=== PATIENT | male | born 1955 | race Caucasian/White ===

== ENCOUNTER → 2016-12-13 | Outpatient (CLI) | payer BC, MEDICARE ==
[2016-12-13 15:02] LABS: ABSOLUTE BASOPHILS # (AUTO) 0.1 10^3/uL (0.0-0.2); ABSOLUTE EOSINOPHILS # (AUTO) 0.4 10^3/uL (0.0-0.6); ABSOLUTE MONOCYTES (AUTO) 0.8 10^3/uL (0.1-1.4); ABSOLUTE NEUT (AUTO) 5.2 10^3/uL (1.7-8.2); EOSINOPHILS % (AUTO) 4.4 % (0-6); HEMATOCRIT 42.3 % (37.9-51.0); HEMOGLOBIN 13.4 g/dL (13.5-17.0); HGB HCT DIFFERENCE -2.1; LYMPHOCYTES % (AUTO) 23.2 % (13-45); MEAN CORPUSCULAR HEMOGLOBIN 30.5 pg (27.0-33.4); MEAN CORPUSCULAR HGB CONC 31.6 g/dL (32.0-36.0); MEAN CORPUSCULAR VOLUME 96 fl (80-97); MONOCYTES % (AUTO) 9.7 % (3-13); RED BLOOD COUNT 4.38 10^6/uL (4.35-5.55); RED CELL DISTRIBUTION WIDTH 12.7 % (11.5-14.0); SEGMENTED NEUTROPHILS % (AUTO) 61.7 % (42-78); WHITE BLOOD COUNT 8.4 10^3/uL (4.0-10.5)
[2016-12-13 15:24] LABS: ALANINE AMINOTRANSFERASE 43 U/L (21-72); ALKALINE PHOSPHATASE 72 U/L (38-126); ANION GAP 12 (5-19); ASPARTATE AMINO TRANSFERASE 25 U/L (17-59); BILIRUBIN,TOTAL 0.6 mg/dL (0.2-1.3); BLOOD UREA NITROGEN 11 mg/dL (7-20); CALCIUM 9.5 mg/dL (8.4-10.2); CARBON DIOXIDE 32 mmol/L (22-30); CHLORIDE 98 mmol/L (98-107); CHOLESTEROL 218.13 mg/dL (0-200); CREATININE RESULT 1.01 mg/dL (0.52-1.25); Direct HDL 48 mg/dL (>40); GLUCOSE 97 mg/dL (75-110); POTASSIUM 4.6 mmol/L (3.6-5.0); SODIUM 141.5 mmol/L (137-145); TOTAL PROTEIN 7.1 g/dL (6.3-8.2); TRIGLYCERIDES 188 mg/dL (<150)
[2016-12-13 15:35] LABS: DIRECT LDL 143 mg/dL (<100)
[2016-12-13 15:39] LABS: VLDL CHOLESTEROL 37.6 mg/dL (10-31)
[2016-12-13 16:08] LABS: THYROID STIMULATING HORMONE 2.43 uIU/mL (0.47-4.68)
== END ==
LOC: OD 13:47
PROVIDERS: ATTEND Internal Medicine
DX: I10 Essential (primary) hypertension (principal); E78.2 Mixed hyperlipidemia; E03.9 Hypothyroidism, unspecified; E29.1 Testicular hypofunction; D69.6 Thrombocytopenia, unspecified; E11.9 Type 2 diabetes mellitus without complications; E55.9 Vitamin D deficiency, unspecified
CPT/HCPCS: 36415; 80053; 80061; 82043; 82306; 83036; 84403; 84439; 84443; 85025

== ENCOUNTER 2017-02-11 05:15 | Inpatient (IN) | payer BC, MEDICARE ==
[2017-02-11] MEDS ORDERED: ASPIRIN 81 MG TABLET, CHEWABLE PO ONE (06:12)
[2017-02-11 06:35] LABS: ABSOLUTE BASOPHILS # (AUTO) 0.1 10^3/uL (0.0-0.2); ABSOLUTE EOSINOPHILS # (AUTO) 0.4 10^3/uL (0.0-0.6); ABSOLUTE LYMPHOCYTES (AUTO) 2.4 10^3/uL (0.5-4.7); ABSOLUTE NEUT (AUTO) 6.1 10^3/uL (1.7-8.2); BASOPHILS % (AUTO) 1.3 % (0-2); EOSINOPHILS % (AUTO) 4.1 % (0-6); HEMATOCRIT 40.6 % (37.9-51.0); HEMOGLOBIN 13.8 g/dL (13.5-17.0); HGB HCT DIFFERENCE 0.8; MEAN CORPUSCULAR HEMOGLOBIN 31.2 pg (27.0-33.4); MEAN CORPUSCULAR HGB CONC 33.9 g/dL (32.0-36.0); MEAN CORPUSCULAR VOLUME 92 fl (80-97); MONOCYTES % (AUTO) 9.9 % (3-13); RED BLOOD COUNT 4.41 10^6/uL (4.35-5.55); RED CELL DISTRIBUTION WIDTH 14.6 % (11.5-14.0); SEGMENTED NEUTROPHILS % (AUTO) 60.7 % (42-78); WHITE BLOOD COUNT 10.1 10^3/uL (4.0-10.5)
[2017-02-11 06:42] LABS: APPEARANCE,URINE CLEAR; BILIRUBIN,URINE NEGATIVE (NEGATIVE); GLUCOSE, URINE NEGATIVE (NEGATIVE); KETONES,URINE NEGATIVE (NEGATIVE); LEUKOCYTE ESTERASE,URINE NEGATIVE (NEGATIVE); NITRITE,URINE NEGATIVE (NEGATIVE); PROTEIN,URINE NEGATIVE (NEGATIVE); URINE SPECIFIC GRAVITY 1.017; UROBILINOGEN,URINE NEGATIVE mg/dL (<2.0)
[2017-02-11 06:50] LABS: ALANINE AMINOTRANSFERASE 32 U/L (21-72); ALBUMIN 4.4 g/dL (3.5-5.0); ALKALINE PHOSPHATASE 88 U/L (38-126); ANION GAP 13 (5-19); ASPARTATE AMINO TRANSFERASE 24 U/L (17-59); BILIRUBIN,TOTAL 1.3 mg/dL (0.2-1.3); BLOOD UREA NITROGEN 23 mg/dL (7-20); CALCIUM 9.4 mg/dL (8.4-10.2); CARBON DIOXIDE 30 mmol/L (22-30); CHLORIDE 97 mmol/L (98-107); CREATINE KINASE 28 U/L (55-170); CREATININE RESULT 1.01 mg/dL (0.52-1.25); GLUCOSE 143 mg/dL (75-110); LIPASE 788.8 U/L (23-300); POTASSIUM 3.7 mmol/L (3.6-5.0); SODIUM 139.9 mmol/L (137-145); TOTAL PROTEIN 7.7 g/dL (6.3-8.2)
[2017-02-11 07:02] LABS: CREATINE KINASE MB 0.47 ng/mL (<4.55); TROPONIN I < 0.012 ng/mL
[2017-02-11] MEDS ORDERED: MORPHINE SULFATE 10 MG/ML INJ IV ONE (07:48)
[2017-02-11] MEDS ORDERED: ONDANSETRON HCL INJ/PF 4 MG/2 ML SDV IV ONE (07:48)
[2017-02-11] MEDS ORDERED: NORMAL SALINE 1000 ML 1,000 ML IV PRN ×2 (07:49→10:37)
--- NOTE | 2017-02-11 08:09 | ER Document Report ---
ED GI/ - General Chief Complaint: Abdominal Pain Stated Complaint: ABDOMINAL PAIN Notes: Patient is a 61-year-old male who presents emergency Department complaining of abdominal pain for the past 2 going on 3 days. Patient states that this was gradual onset originally intermittent and mild but has progressed to being constant and more severe. Patient states that currently his pain is a 4 out of 5 in severity located in the epigastric area but radiates to the right upper quadrant and left upper quadrant and describes as a constant ache. He states that this pain gets worse postprandial. Denies any nausea, vomiting, diarrhea, constipation. Last bowel movement was about 2 days ago and was loose. Patient states that he is on chronic narcotics for chronic low back pain related to L1 L2 nerve impingement. He is on hydromorphone 12 mg extended release twice a day as well as 2 mg every 6 hours as needed. Past medical history significant for chronic back pain, diabetes, hypertension, GERD, coronary artery disease significant for an RI in 2005 requiring stent times one location unknown, hypothyroidism, history of alcohol abuse, h/o pancreatitis Past surgical history significant for coronary catheter in 2005, trach as a child, hernia, right knee arthroscopically, cholecystectomy Social history significant for former tobacco user, social alcohol user, admits to 5 drinks a week on average, denies any drug use Allergies to Levaquin-hives PCP: Sergey Miles TRAVEL OUTSIDE OF THE [place] IN LAST 30 DAYS: No - Related Data Allergies/Adverse Reactions: levofloxacin [From Levaquin] Allergy (Verified 02/11/17 05:16) Past Medical History - Social History Smoking Status: Never Smoker Chew tobacco use (# tins/day): No Frequency of alcohol use: Occasional Drug Abuse: None Family History: Reviewed & Not Pertinent Patient has suicidal ideation: No Patient has homicidal ideation: No - Past Medical History Cardiac Medical History: Reports: Hx Coronary Artery Disease - cardiac stent placement, Hx Heart Attack - 2004, Hx Hypertension Pulmonary Medical History: Reports: Hx Pneumonia - hx of sepsis, E-coli Denies: Hx Asthma, Hx Bronchitis, Hx COPD Neurological Medical History: Denies: Hx Cerebrovascular Accident, Hx Seizures Endocrine Medical History: Reports: Hx Diabetes Mellitus Type 2, Hx Hypothyroidism Renal/ Medical History: Denies: Hx Peritoneal Dialysis Malignancy Medical History: Reports Hx Leukemia - CLL GI Medical History: Reports: Hx Gastroesophageal Reflux Disease Musculoskeltal Medical History: Reports Hx Arthritis Past Surgical History: Reports: Hx Cardiac Catheterization - stent 2004, Hx Cholecystectomy - Immunizations Immunizations up to date: Yes Hx Diphtheria, Pertussis, Tetanus Vaccination: Yes Hx Pneumococcal Vaccination: 08/31/10 Review of Systems - Review of Systems Constitutional: No symptoms reported EENT: No symptoms reported Cardiovascular: No symptoms reported Respiratory: No symptoms reported Gastrointestinal: See HPI Genitourinary: No symptoms reported Male Genitourinary: No symptoms reported Musculoskeletal: No symptoms reported Skin: No symptoms reported Hematologic/Lymphatic: No symptoms reported Neurological/Psychological: No symptoms reported Physical Exam - Vital signs Vitals: Temp Pulse Resp BP Pulse Ox 98.5 F 68 16 167/95 H 100 02/11/17 05:20 02/11/17 05:20 02/11/17 05:20 02/11/17 05:20 02/11/17 05:20 - Notes Notes: PHYSICAL EXAM GENERAL: Alert, interacts well. HEAD: Normocephalic, atraumatic. EYES: Pupils equal, round, and reactive to light. Extraocular movements intact. ENT: Oral mucosa moist, tongue midline. NECK: Full range of motion. Supple. Trachea midline. LUNGS: Clear to auscultation bilaterally, no wheezes, rales, or rhonchi. No respiratory distress. HEART: Regular rate and rhythm. No murmurs, gallops, or rubs. ABDOMEN: Soft, mildly distended, dull to percussion, moderate tenderness over epigastrum. No guarding, rebound, or rigidity.. Bowel sounds present in all 4 quadrants. EXTREMITIES: Moves all 4 extremities spontaneously. No edema, radial and dorsalis pedis pulses 2/4 bilaterally. No cyanosis. NEUROLOGICAL: Alert and oriented x4. Normal speech. PSYCH: Normal affect, normal mood. SKIN: Warm, dry, normal turgor. No rashes or lesions noted. Course - Re-evaluation Re-evalutation: 02/11/17 08:17 Patient is a 61-year-old male is hemodynamically stable, no acute distress and afebrile. Initial lab work initiated by triage reveals a mildly elevated lipase of 788. I have consulted supervising physician Dr. Brendon Gomez who is recommended a CT of the abdomen and pelvis with IV contrast to evaluate the pancreas. Have initiated IV fluids and antiemetics at this time. 02/11/17 10:38 CT the abdomen and pelvis shows retroperitoneal inflammation at the head of the pancreas as well as duodenum and stomach. With these findings and elevated lipase and history of patient's alcohol abuse and discussed hospital admission with Dr. Marcin Valdez. He is agreeable for hospital admission. Discussed plan of patient who is agreeable. Per [facility] protocol and guidelines, this case was discussed with supervising physician Dr. Brendon Gomez prior to admission - Vital Signs Vital signs: Temp Pulse Resp BP Pulse Ox 98.1 F 68 17 153/95 H 99 02/11/17 08:00 02/11/17 05:20 02/11/17 09:01 02/11/17 08:00 02/11/17 09:01 - Laboratory Result Diagrams: 02/11/17 06:08 02/11/17 06:08 Laboratory results interpreted by me: 02/11/17 02/11/17 06:08 06:08 RDW 14.6 H Plt Count 102 L Chloride 97 L BUN 23 H Glucose 143 H Creatine Kinase 28 L Lipase 788.8 H - Diagnostic Test Radiology reviewed: Image reviewed, Reports reviewed - EKG Interpretation by Me EKG shows normal: Sinus rhythm Rate: Normal Rhythm: NSR Discharge - Discharge Clinical Impression: Pancreatitis Condition: Stable Disposition: ADMITTED INPATIENT Admitting Provider: Timothyist - José Miguel Unit Admitted: Medical Floor
[2017-02-11] MEDS ORDERED: HYDROMORPHONE HCL INJ/PF 2 MG/ML AMPULE IV ONE (10:38)
[2017-02-11] MEDS ORDERED: ACETAMINOPHEN 325 MG TABLET PO PRN (11:21)
[2017-02-11] MEDS ORDERED: ONDANSETRON 4 MG TAB.RAPDIS PO PRN (11:21)
[2017-02-11] MEDS ORDERED: MORPHINE SULFATE 10 MG/ML INJ IV PRN ×3 (11:26→17:37)
[2017-02-11] MEDS ORDERED: INSULIN LISPRO 100 UNIT/ML 3 ML VIAL SUBCUT PRN (12:04)
[2017-02-11] MEDS ORDERED: GLUCAGON,HUMAN RECOMB 1 MG INJ IM PRN (12:04)
[2017-02-11] MEDS ORDERED: DEXTROSE 40% GEL 15 GM TUBE PO PRN ×2 (12:04)
[2017-02-11] MEDS ORDERED: DEXTROSE 50%-WATER 25 GM/50 ML DISP.SYRIN IV PRN ×2 (12:04)
--- NOTE | 2017-02-11 12:17 | PDOC H&P ---
History of Present Illness Admission Date/PCP: 02/11/17 11:21 RASHAWN COELLO MD Patient complains of: Abdominal pain History of Present Illness: JESSICA DIAZ is a 61 year old male with a history of tonic lymphocytic leukemia who presents with a one-day history of abdominal pain. Patient reports his pain is epigastric area for the last day that radiates through occasionally to his back. It's made worse with eating. He reports that is 6 out of 10 currently. Patient has had some associated diarrhea. He denies any melena or bright blood per rectum. Patient is found to have inflammation around the pancreas as well as elevated lipase. The patient does occasionally have alcohol in the form of liquor 2 shots per day but none for the last several days. The patient was found to have cirrhosis on his CT scan although he has no history of cirrhosis. 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 The patient has a history of Foss's esophagitis and has been taking some nonsteroidals recently. He has had a cholecystectomy. Past Medical History Cardiac Medical History: Reports: Coronary Artery Disease - cardiac stent placement, Myocardial Infarction - 2004, Hypertension Pulmonary Medical History: Reports: Pneumonia - hx of sepsis, E-coli Denies: Asthma, Bronchitis, Chronic Obstructive Pulmonary Disease (COPD) EENT Medical History: Reports: None Neurological Medical History: Denies: Seizures Endocrine Medical History: Reports: Diabetes Mellitus Type 2, Hypothyroidism Renal/ Medical History: Reports: None Malignancy Medical History: Reports: Leukemia - CLL GI Medical History: Reports: Gastroesophageal Reflux Disease, Other - Foss's esophagitis Musculoskeltal Medical History: Reports: Arthritis Skin Medical History: Reports: None Psychiatric Medical History: Reports: None Traumatic Medical History: Reports: None Hematology: Denies: Anemia Infectious Medical History: Reports: None Past Surgical History Past Surgical History: Reports: Cardiac Catheterization - stent 2004, Cholecystectomy Social History Information Source: Patient Lives with: Spouse/Significant other Smoking Status: Never Smoker Frequency of Alcohol Use: Rare Hx Recreational Drug Use: No Drugs: None Hx Prescription Drug Abuse: No - Advance Directive Resuscitation Status: Full Code Surrogate healthcare decision maker:: Family History Family History: Father at age 65 with lymphoma. Mother is 90 alive and is healthy Parental Family History Reviewed: Yes Children Family History Reviewed: No Sibling(s) Family History Reviewed.: No Medication/Allergy Home Medications: Aspirin [Ecotrin 81 mg EC Tablet] 81 mg PO DAILY 01/04/12 Pregabalin [Lyrica 100 mg Capsule] 150 mg PO BID 01/04/12 Alprazolam [Xanax 0.5 mg Tablet] 0.5 mg PO QID 02/04/14 Esomeprazole Magnesium [Nexium] 40 mg PO BID 04/26/14 Metformin HCl [Glucophage 500 mg Tablet] 500 mg PO BIDACBS 12/26/14 Cetirizine HCl [Zyrtec 10 mg Tablet] 1 tab PO DAILY 04/07/16 Hydromorphone HCl 2 mg PO BIDP PRN 04/08/16 Hydromorphone HCl [Hydromorphone ER] 24 mg PO DAILY 04/08/16 Fluticasone Propionate 2 spray NASL DAILY 04/10/16 Ondansetron HCl 1 tab PO Q8 PRN 04/10/16 Atenolol [Tenormin 50 mg Tablet] 50 mg PO DAILY tablet 04/12/16 Ertapenem Sodium [Invanz Inj 1 gm Vial] 1 gm IV DAILY #8 vial 04/12/16 Lisinopril [Prinivil 10 mg Tablet] 10 mg PO DAILY #30 tablet 04/12/16 Metoclopramide HCl [Reglan 10 mg Tablet] 5 mg PO ACHS #120 tablet 04/12/16 Ranitidine HCl [Zantac] 150 mg PO QHS #30 tablet 04/12/16 Dilaudid 12mg Extended Release 2 tab PO QAM #6 11/16/16 Hydromorphone HCl [Dilaudid 2 mg Tablet] 2 mg PO Q6 PRN #12 tablet 11/16/16 Allergies/Adverse Reactions: levofloxacin [From Levaquin] Allergy (Verified 02/11/17 05:16) Review of Systems Constitutional: ABSENT: chills, fever(s), headache(s), weight gain, weight loss Eyes: ABSENT: visual disturbances Ears: ABSENT: hearing changes Cardiovascular: ABSENT: chest pain, dyspnea on exertion, edema, orthropnea, palpitations Respiratory: ABSENT: cough, hemoptysis Gastrointestinal: PRESENT: as per HPI, abdominal pain, diarrhea, nausea. ABSENT : bloating, coffee ground emesis, constipation, heartburn, hematemesis, hematochezia, melena, vomiting Genitourinary: ABSENT: dysuria, hematuria Musculoskeletal: PRESENT: back pain Integumentary: ABSENT: rash, wounds Neurological: ABSENT: abnormal gait, abnormal speech, confusion, dizziness, focal weakness, syncope Psychiatric: ABSENT: anxiety, depression Endocrine: ABSENT: cold intolerance, heat intolerance, polydipsia, polyuria Hematologic/Lymphatic: ABSENT: easy bleeding, easy bruising Physical Exam Vital Signs: Temp Pulse Resp BP Pulse Ox 98.1 F 68 17 153/95 H 99 02/11/17 08:00 02/11/17 05:20 02/11/17 09:01 02/11/17 08:00 02/11/17 09:01 General appearance: PRESENT: no acute distress, well-developed, well-nourished Head exam: PRESENT: atraumatic, normocephalic Eye exam: PRESENT: conjunctiva pink, EOMI, PERRLA. ABSENT: scleral icterus Ear exam: PRESENT: normal external ear exam Mouth exam: PRESENT: moist, tongue midline Neck exam: ABSENT: carotid bruit, JVD, lymphadenopathy, thyromegaly Respiratory exam: PRESENT: clear to auscultation arabella. ABSENT: rales, rhonchi, wheezes Cardiovascular exam: PRESENT: RRR. ABSENT: diastolic murmur, rubs, systolic murmur GI/Abdominal exam: PRESENT: normal bowel sounds, soft, tenderness - Moderate epigastric tenderness but no guarding or rebound. ABSENT: distended, guarding, mass, organolmegaly, rebound Rectal exam: PRESENT: deferred Extremities exam: ABSENT: calf tenderness, clubbing, pedal edema Neurological exam: PRESENT: alert, awake, oriented to person, oriented to place , oriented to time, oriented to situation, CN II-XII grossly intact. ABSENT: motor sensory deficit Psychiatric exam: PRESENT: appropriate affect Skin exam: PRESENT: dry, intact, warm. ABSENT: cyanosis, rash Results Impressions: Chest X-Ray 02/11/17 06:12 IMPRESSION: NO ACUTE RADIOGRAPHIC FINDING IN THE CHEST. Abdomen/Pelvis CT 02/11/17 07:48 IMPRESSION: Retroperitoneal inflammation surrounding the gastric outlet, proximal duodenum and pancreatic head. Findings are most likely related the pancreatitis. Inflammation related to duodenum ulcer could not be excluded. Cirrhosis with portal hypertension and varices. No ascites. Assessment & Plan - Diagnosis (1) Pancreatitis Is this a current diagnosis for this admission?: YesPlan: The patient has inflammation around the pancreas as well as elevated lipase. He has had a cholecystectomy in the past. We will check an MRCP to rule out any type of mass. Patient does drink alcohol occasionally but it's not clear if that is the cause for his pancreatitis as well as his cirrhosis. We'll keep him nothing by mouth and give IV fluids. We'll consult Dr. Shields his intermediate frame tender. We will give morphine as needed. The possibility of this being related some his chemotherapeutic agents is considered but is not had his chemotherapy and over a year. He does have cirrhosis also. (2) Diabetes mellitus Is this a current diagnosis for this admission?: YesPlan: We'll hold his metformin and cover with sliding scale insulin. (3) Hypothyroidism Is this a current diagnosis for this admission?: YesPlan: Continue Synthroid. (4) Coronary artery disease Is this a current diagnosis for this admission?: YesPlan: Patient denies any chest pain. (5) Hyperlipidemia Is this a current diagnosis for this admission?: Yes (6) Hypertension Is this a current diagnosis for this admission?: YesPlan: The blood pressures elevated however he is in some pain and we will give morphine. (7) Gastroesophageal reflux disease Is this a current diagnosis for this admission?: YesPlan: He has a history of Foss's esophagitis and has been taking some nonsteroidals. We'll give Pepcid (8) Chronic lymphocytic leukemia Is this a current diagnosis for this admission?: YesPlan: Patient has a normal white blood cell count. He has seen Dr. Levine in the past. - Time Time Spent: 50 to 70 Minutes - Inpatient Certification Medical Necessity: Need For IV Fluids, Need for Pain Control - Plan Summary Plan Summary: We'll make him a regular inpatient admission as I anticipate his require greater than 2 midnight hospital stay because of his need for IV fluids and IV narcotics.
--- NOTE | 2017-02-11 14:14 | ER Document Report ---
Doctor's Note Notes: 02/11/17 14:13 Patient independently seen and examined by myself. Reports epigastric pain and nausea similar to what is had a past with pancreatitis. On exam skin is warm and dry abdomen soft mild epigastric tenderness nondistended no guarding rebound rigidity no masses CT scan and laboratory workup both consistent with pancreatitis and patient will require admission
--- NOTE | 2017-02-11 17:29 | EKG REPORT ---
SEVERITY:- BORDERLINE ECG - SINUS RHYTHM BORDERLINE R WAVE PROGRESSION, ANTERIOR LEADS BORDERLINE T ABNORMALITIES, ANTERIOR LEADS : Confirmed by: Snow Singletary MD 11-Feb-2017 17:28:18
[2017-02-11] MEDS ORDERED: HYDRALAZINE HCL INJ/PF 20 MG/1 ML SDV IV PRN (17:37)
[2017-02-11] MEDS: ONDANSETRON HCL INJ/PF 4 MG/2 ML SDV IV PRN (17:44)
[2017-02-11] MEDS: NORMAL SALINE 1000 ML 1,000 ML IV PRN (18:37)
[2017-02-11] MEDS: MORPHINE SULFATE 10 MG/ML INJ IV PRN ×3 (19:38→23:33)
[2017-02-11] MEDS: FAMOTIDINE 20 MG TABLET PO SCH (21:38)
[2017-02-12] MEDS: MORPHINE SULFATE 10 MG/ML INJ IV PRN ×10 (01:37→23:39)
[2017-02-12] MEDS: ONDANSETRON HCL INJ/PF 4 MG/2 ML SDV IV PRN (01:43)
[2017-02-12 05:02] LABS: ABSOLUTE BASOPHILS # (AUTO) 0.1 10^3/uL (0.0-0.2); ABSOLUTE EOSINOPHILS # (AUTO) 0.2 10^3/uL (0.0-0.6); ABSOLUTE LYMPHOCYTES (AUTO) 1.1 10^3/uL (0.5-4.7); ABSOLUTE MONOCYTES (AUTO) 0.7 10^3/uL (0.1-1.4); ABSOLUTE NEUT (AUTO) 2.9 10^3/uL (1.7-8.2); BASOPHILS % (AUTO) 1.8 % (0-2); EOSINOPHILS % (AUTO) 4.7 % (0-6); HEMATOCRIT 34.6 % (37.9-51.0); HEMOGLOBIN 11.9 g/dL (13.5-17.0); HGB HCT DIFFERENCE 1.1; LYMPHOCYTES % (AUTO) 22.8 % (13-45); MEAN CORPUSCULAR HEMOGLOBIN 31.5 pg (27.0-33.4); MEAN CORPUSCULAR HGB CONC 34.3 g/dL (32.0-36.0); MEAN CORPUSCULAR VOLUME 92 fl (80-97); MONOCYTES % (AUTO) 13.1 % (3-13); RED BLOOD COUNT 3.77 10^6/uL (4.35-5.55); RED CELL DISTRIBUTION WIDTH 14.5 % (11.5-14.0); SEGMENTED NEUTROPHILS % (AUTO) 57.6 % (42-78)
[2017-02-12 05:24] LABS: ANION GAP 6 (5-19); BLOOD UREA NITROGEN 14 mg/dL (7-20); CALCIUM 8.5 mg/dL (8.4-10.2); CARBON DIOXIDE 30 mmol/L (22-30); CHLORIDE 107 mmol/L (98-107); CREATININE RESULT 0.84 mg/dL (0.52-1.25); GLUCOSE 109 mg/dL (75-110); LIPASE 626.7 U/L (23-300); MAGNESIUM 1.5 mg/dL (1.6-2.3); POTASSIUM 4.4 mmol/L (3.6-5.0)
[2017-02-12] MEDS: MAGNESIUM SULFATE/D5W 100 ML IV SCH ×2 (08:08→11:58)
[2017-02-12] MEDS ORDERED: MIDAZOLAM 2 MG/2 ML INJ ONE (08:59)
[2017-02-12] MEDS ORDERED: NALOXONE HCL INJ/PF 0.4 MG/1 ML SDV ONE (08:59)
[2017-02-12] MEDS ORDERED: PROMETHAZINE HCL INJ 25 MG/1 ML VIAL ONE (08:59)
[2017-02-12] MEDS ORDERED: DIPHENHYDRAMINE HCL 50 MG/ML VIAL ONE (08:59)
[2017-02-12] MEDS ORDERED: ONDANSETRON HCL INJ/PF 4 MG/2 ML SDV ONE (08:59)
[2017-02-12] MEDS ORDERED: GLUCAGON,HUMAN RECOMB 1 MG INJ ONE (09:00)
[2017-02-12] MEDS ORDERED: EPINEPHRINE INJ 1 MG/10 ML DISP.SYRIN ONE (09:00)
[2017-02-12] MEDS ORDERED: FLUMAZENIL INJ 0.5 MG/5 ML VIAL IV ONE (09:00)
[2017-02-12] MEDS ORDERED: FENTANYL CITRATE INJ/PF 100 MCG/2 ML AMPUL ONE (09:00)
--- NOTE | 2017-02-12 09:21 | PDOC CONSULTATION ---
Consultation Consult Date: 02/12/17 Attending physician:: KATHIA CASTILLO Consult reason:: pancreatitis. abnormal CT scan, radiologist concerned for possible duodenal bulb inflammation. known history of Foss's. ? possible varices, ? cirrhosis History of Present Illness Admission Date/PCP: 02/11/17 11:21 RASHAWN COELLO MD History of Present Illness: Patient admitted by the Hospitalist service patient has a history of Foss's esophagus and has had ablation done in the past has not been seen for a while patient presented with pancreatitis patient had CT scan done, apparently may have abnormal finding as suggested by radiologist will need EGD for further clarification patient does have thrombocytopenia and may have varices as well suggestive of possible varices could have cirrhosis denies any jaundice patient is largely epigastric in nature denies any melena there is no nausea or vomiting patient denies any dysphagia or odynophagia Past Medical History Cardiac Medical History: Reports: Coronary Artery Disease - cardiac stent placement, Myocardial Infarction - 2004, Hypertension Pulmonary Medical History: Reports: Pneumonia - hx of sepsis, E-coli Denies: Asthma, Bronchitis, Chronic Obstructive Pulmonary Disease (COPD) EENT Medical History: Reports: None Neurological Medical History: Denies: Seizures Endocrine Medical History: Reports: Diabetes Mellitus Type 2, Hypothyroidism Renal/ Medical History: Reports: None Malignancy Medical History: Reports: Leukemia - CLL GI Medical History: Reports: Gastroesophageal Reflux Disease, Other - Foss's esophagitis Musculoskeltal Medical History: Reports: Arthritis Skin Medical History: Reports: None Psychiatric Medical History: Reports: None Denies: Depression Traumatic Medical History: Reports: None Hematology: Denies: Anemia Infectious Medical History: Reports: None Past Surgical History Past Surgical History: Reports: Cardiac Catheterization - stent 2004, Cholecystectomy Social History Lives with: Spouse/Significant other Smoking Status: Former Smoker Last Time Smoked: 2004 Frequency of Alcohol Use: Occasional Hx Recreational Drug Use: No Drugs: None Hx Prescription Drug Abuse: No - Advance Directive Resuscitation Status: Full Code Family History Family History: Reviewed & Not Pertinent Parental Family History Reviewed: Yes Children Family History Reviewed: Unknown Sibling(s) Family History Reviewed.: Unknown Medication/Allergy Home Medications: Aspirin [Aspirin 81 mg Chewable Tablet] 81 mg PO DAILY 02/11/17 Atenolol [Tenormin 50 mg Tablet] 50 mg PO DAILY 02/11/17 Cetirizine HCl [Zyrtec 10 mg Tablet] 1 tab PO DAILYP PRN 02/11/17 Esomeprazole Magnesium [Nexium] 40 mg PO BID 02/11/17 Fluticasone Propionate [Flonase Nasal [place] 50 Mcg/[place] 16 gm] 2 sprays NASL DAILYP PRN 02/11/17 Hydromorphone HCl [Dilaudid 2 mg Tablet] 2 mg PO QIDP PRN 02/11/17 Hydromorphone HCl [Exalgo] 12 mg PO BID 02/11/17 Lisinopril [Prinivil 10 mg Tablet] 10 mg PO DAILY 02/11/17 Metformin HCl [Glucophage] 500 mg PO BIDBS 02/11/17 Metoclopramide HCl [Reglan 10 mg Tablet] 5 mg PO QIDP PRN 02/11/17 Pregabalin [Lyrica 75 mg Capsule] 150 mg PO BID 02/11/17 Ranitidine HCl [Zantac] 150 mg PO QHS 02/11/17 Allergies/Adverse Reactions: levofloxacin [From Levaquin] Allergy (Verified 02/11/17 05:16) Review of Systems Constitutional: ABSENT: fever(s), headache(s), night sweats, weakness Eyes: ABSENT: visual disturbances Ears: ABSENT: hearing changes Nose, Mouth, and Throat: ABSENT: sore throat Cardiovascular: ABSENT: chest pain, edema, palpitations Respiratory: ABSENT: dyspnea, hemoptysis Gastrointestinal: ABSENT: diarrhea, dysphagia, hematemesis, hematochezia, nausea , vomiting Genitourinary: ABSENT: dysuria, hematuria Musculoskeletal: ABSENT: deformity Integumentary: ABSENT: lesions, pruritus Neurological: ABSENT: focal weakness, numbness, syncope, vertigo Endocrine: ABSENT: polydipsia, polyphagia, polyuria Physical Exam Vital Signs: Temp Pulse Resp BP Pulse Ox 98.4 F 63 16 149/81 H 100 02/12/17 08:58 02/12/17 08:58 02/12/17 08:58 02/12/17 08:58 02/12/17 08:58 Intake & Output 02/11/17 02/12/17 02/13/17 06:59 06:59 06:59 Intake Total 2475 Output Total 500 Balance 1975 Weight 84.4 kg General appearance: PRESENT: no acute distress, cooperative Head exam: PRESENT: atraumatic, normocephalic Eye exam: PRESENT: EOMI, PERRLA. ABSENT: nystagmus, periorbital swelling, scleral icterus Mouth exam: PRESENT: moist Throat exam: ABSENT: tonsillar exudate Neck exam: ABSENT: meningismus, tenderness, thyromegaly Respiratory exam: PRESENT: symmetrical, unlabored. ABSENT: chest wall tenderness, tachypnea Cardiovascular exam: PRESENT: RRR, rubs, +S2 Pulses: PRESENT: normal carotid pulses Extremities exam: ABSENT: joint swelling Musculoskeletal exam: PRESENT: full ROM Neurological exam: PRESENT: oriented to time, oriented to situation, reflexes normal Psychiatric exam: PRESENT: appropriate affect Skin exam: PRESENT: normal color. ABSENT: mottled, pallor, petechiae, urticaria , vesicles Results Laboratory Results: 02/12/17 04:28 02/12/17 04:28 02/12/17 02/12/17 04:28 04:28 WBC 5.0 RBC 3.77 L Hgb 11.9 L Hct 34.6 L MCV 92 MCH 31.5 MCHC 34.3 RDW 14.5 H Plt Count 60 L Seg Neutrophils % 57.6 Lymphocytes % 22.8 Monocytes % 13.1 H Eosinophils % 4.7 Basophils % 1.8 Absolute Neutrophils 2.9 Absolute Lymphocytes 1.1 Absolute Monocytes 0.7 Absolute Eosinophils 0.2 Absolute Basophils 0.1 Sodium 143.0 Potassium 4.4 Chloride 107 Carbon Dioxide 30 Anion Gap 6 BUN 14 Creatinine 0.84 Est GFR ( Amer) > 60 Est GFR (Non-Af Amer) > 60 Glucose 109 Calcium 8.5 Magnesium 1.5 L Lipase 626.7 H Impressions: Abdomen MRI 02/11/17 00:00 IMPRESSION: 1. INFLAMMATORY CHANGES WITH EDEMA INVOLVING THE PANCREATIC HEAD CONSISTENT WITH PANCREATITIS. 2. UNREMARKABLE MRCP. NO BILIARY DILATION OR FILLING DEFECTS. Chest X-Ray 02/11/17 06:12 IMPRESSION: NO ACUTE RADIOGRAPHIC FINDING IN THE CHEST. Abdomen/Pelvis CT 02/11/17 07:48 IMPRESSION: Retroperitoneal inflammation surrounding the gastric outlet, proximal duodenum and pancreatic head. Findings are most likely related the pancreatitis. Inflammation related to duodenum ulcer could not be excluded. Cirrhosis with portal hypertension and varices. No ascites. Assessment & Plan - Diagnosis (1) Abnormal abdominal CT scan Plan: ? possible duodenal inflammation as suggested by the radiologist will need EGD for further evaluation Risks, benefits and alternatives are explained to the patient in detail further recommendations to follow (2) Gastroesophageal reflux disease Is this a current diagnosis for this admission?: YesPlan: known history of Foss's previously ablation denies any current symptoms while on medication (3) Pancreatitis Is this a current diagnosis for this admission?: YesPlan: ? etiology has some thrombocytopenia and possible varices suggestive of portal hypertension and possible cirrhosis ? possible ETOH LFT's are normal, has had cholecystectomy doubt retained stone ? due to medication will follow
--- NOTE | 2017-02-12 09:37 | Operative Report ---
Operative Report DATE OF SURGERY: 02/12/17 Operative Report: The risks benefits and alternatives of the procedure explained to the patient in detail and informed consent is obtained that GIF Olympus video scope was inserted into the patient's mouth and hypopharynx the esophagus is identified intubated and insufflated the scope was then advanced through the esophagus stomach and duodenum retroflexion maneuver is done the esophagus stomach and first and second portions of the duodenum examined PREOPERATIVE DIAGNOSIS: Known history of Foss's. Evaluate for esophageal varices. Abnormal CT scan POSTOPERATIVE DIAGNOSIS: Normal duodenum. Mild gastritis. Foss's has resolved. Prominent esophageal veins OPERATION: EGD with biopsy SURGEON: KATHIA CASTILLO ANESTHESIA: Moderate Sedation - 2 mg of Versed, 25 mg of Benadryl. Conscious sedation monitoring time 15 minutes TISSUE REMOVED OR ALTERED: Shallow mucosal gastric biopsy obtained, rule out Helicobacter pylori COMPLICATIONS: None. ESTIMATED BLOOD LOSS: none. INTRAOPERATIVE FINDINGS: As noted above. PROCEDURE: Patient tolerated the procedure well. No immediate postprocedure complications are noted. Patient is discharged in good condition. Patient sent back to his room Resume diet advance as tolerated Resume previous activity level Follow-up on biopsy Follow-up as outpatient
--- NOTE | 2017-02-12 10:53 | PDOC PROGRESS REPORT ---
Subjective Progress Note for:: 02/12/17 Subjective:: Reports his abdominal pain has improved. Physical Exam Vital Signs: Temp Pulse Resp BP Pulse Ox 98.4 F 74 17 128/70 H 98 02/12/17 08:58 02/12/17 10:00 02/12/17 10:00 02/12/17 10:00 02/12/17 10:00 Intake & Output 02/11/17 02/12/17 02/13/17 06:59 06:59 06:59 Intake Total 2475 300 Output Total 500 Balance 1975 300 Weight 84.4 kg General appearance: PRESENT: no acute distress Eye exam: PRESENT: conjunctiva pink. ABSENT: scleral icterus Ear exam: PRESENT: normal external ear exam Mouth exam: PRESENT: moist, tongue midline Neck exam: ABSENT: JVD Respiratory exam: PRESENT: clear to auscultation arabella. ABSENT: rales, rhonchi, wheezes Cardiovascular exam: PRESENT: RRR. ABSENT: diastolic murmur, rubs, systolic murmur GI/Abdominal exam: PRESENT: normal bowel sounds, soft, tenderness - Mild left upper quadrant tenderness but no guarding or rebound.. ABSENT: distended, guarding, mass, organolmegaly, rebound Extremities exam: ABSENT: calf tenderness, clubbing, pedal edema Neurological exam: PRESENT: alert, awake, oriented to person, oriented to place , oriented to time, oriented to situation, CN II-XII grossly intact. ABSENT: motor sensory deficit Psychiatric exam: PRESENT: appropriate affect Skin exam: PRESENT: dry, intact, warm. ABSENT: cyanosis, rash Results Laboratory Results: 02/12/17 04:28 02/12/17 04:28 02/12/17 02/12/17 04:28 04:28 WBC 5.0 RBC 3.77 L Hgb 11.9 L Hct 34.6 L MCV 92 MCH 31.5 MCHC 34.3 RDW 14.5 H Plt Count 60 L Seg Neutrophils % 57.6 Lymphocytes % 22.8 Monocytes % 13.1 H Eosinophils % 4.7 Basophils % 1.8 Absolute Neutrophils 2.9 Absolute Lymphocytes 1.1 Absolute Monocytes 0.7 Absolute Eosinophils 0.2 Absolute Basophils 0.1 Sodium 143.0 Potassium 4.4 Chloride 107 Carbon Dioxide 30 Anion Gap 6 BUN 14 Creatinine 0.84 Est GFR ( Amer) > 60 Est GFR (Non-Af Amer) > 60 Glucose 109 Calcium 8.5 Magnesium 1.5 L Lipase 626.7 H Impressions: Abdomen MRI 02/11/17 00:00 IMPRESSION: 1. INFLAMMATORY CHANGES WITH EDEMA INVOLVING THE PANCREATIC HEAD CONSISTENT WITH PANCREATITIS. 2. UNREMARKABLE MRCP. NO BILIARY DILATION OR FILLING DEFECTS. Chest X-Ray 02/11/17 06:12 IMPRESSION: NO ACUTE RADIOGRAPHIC FINDING IN THE CHEST. Abdomen/Pelvis CT 02/11/17 07:48 IMPRESSION: Retroperitoneal inflammation surrounding the gastric outlet, proximal duodenum and pancreatic head. Findings are most likely related the pancreatitis. Inflammation related to duodenum ulcer could not be excluded. Cirrhosis with portal hypertension and varices. No ascites. Assessment & Plan - Diagnosis (1) Pancreatitis Is this a current diagnosis for this admission?: YesPlan: The patient has inflammation around the pancreas as well as elevated lipase. He has had a cholecystectomy in the past. MRCP was done and shows no obvious mass. Patient does drink alcohol occasionally but it's not clear if that is the cause for his pancreatitis as well as his cirrhosis. We'll keep him nothing by mouth and give IV fluids. Dr Shields of gastroenterology has already evaluated the patient today with EGD. We will give morphine as needed. He does have cirrhosis also. (2) Diabetes mellitus Is this a current diagnosis for this admission?: YesPlan: We'll hold his metformin and cover with sliding scale insulin. (3) Hypothyroidism Is this a current diagnosis for this admission?: YesPlan: Continue Synthroid. (4) Coronary artery disease Is this a current diagnosis for this admission?: YesPlan: Patient denies any chest pain. (5) Hyperlipidemia Is this a current diagnosis for this admission?: Yes (6) Hypertension Is this a current diagnosis for this admission?: YesPlan: The blood pressures elevated however he is in some pain and we will give morphine. (7) Gastroesophageal reflux disease Is this a current diagnosis for this admission?: YesPlan: He has a history of Foss's esophagitis but EGD showed this has resolved. Continue with Pepcid (8) Chronic lymphocytic leukemia Is this a current diagnosis for this admission?: YesPlan: Patient has a normal white blood cell count. He has seen Dr. Levine in the past. - Time Time Spent with patient: 25-34 minutes - Inpatient Certification Medical Necessity: Need for Pain Control
[2017-02-12] MEDS: FAMOTIDINE 20 MG TABLET PO SCH ×2 (12:26→23:40)
[2017-02-13] MEDS: MORPHINE SULFATE 10 MG/ML INJ IV PRN ×3 (01:28→06:37)
[2017-02-13] MEDS: NORMAL SALINE 1000 ML 1,000 ML IV PRN (02:15)
[2017-02-13 06:24] LABS: ALANINE AMINOTRANSFERASE 30 U/L (21-72); ALBUMIN 3.4 g/dL (3.5-5.0); ALKALINE PHOSPHATASE 86 U/L (38-126); ANION GAP 10 (5-19); ASPARTATE AMINO TRANSFERASE 18 U/L (17-59); BILIRUBIN,TOTAL 0.9 mg/dL (0.2-1.3); BLOOD UREA NITROGEN 11 mg/dL (7-20); CALCIUM 8.5 mg/dL (8.4-10.2); CARBON DIOXIDE 24 mmol/L (22-30); CHLORIDE 107 mmol/L (98-107); CREATININE RESULT 0.75 mg/dL (0.52-1.25); GLUCOSE 148 mg/dL (75-110); LIPASE 214.7 U/L (23-300); POTASSIUM 3.9 mmol/L (3.6-5.0); SODIUM 141.1 mmol/L (137-145); TOTAL PROTEIN 6.2 g/dL (6.3-8.2)
[2017-02-13 06:38] LABS: ABSOLUTE EOSINOPHILS # (AUTO) 0.2 10^3/uL (0.0-0.6); ABSOLUTE LYMPHOCYTES (AUTO) 0.9 10^3/uL (0.5-4.7); ABSOLUTE MONOCYTES (AUTO) 0.6 10^3/uL (0.1-1.4); ABSOLUTE NEUT (AUTO) 3.3 10^3/uL (1.7-8.2); BASOPHILS % (AUTO) 0.4 % (0-2); EOSINOPHILS % (AUTO) 4.7 % (0-6); HEMATOCRIT 32.5 % (37.9-51.0); HGB HCT DIFFERENCE 0.5; LYMPHOCYTES % (AUTO) 18.4 % (13-45); MEAN CORPUSCULAR HEMOGLOBIN 31.2 pg (27.0-33.4); MEAN CORPUSCULAR HGB CONC 33.7 g/dL (32.0-36.0); MEAN CORPUSCULAR VOLUME 93 fl (80-97); MONOCYTES % (AUTO) 11.4 % (3-13); RED BLOOD COUNT 3.52 10^6/uL (4.35-5.55); RED CELL DISTRIBUTION WIDTH 14.6 % (11.5-14.0); SEGMENTED NEUTROPHILS % (AUTO) 65.1 % (42-78); WHITE BLOOD COUNT 5.1 10^3/uL (4.0-10.5)
[2017-02-13] MEDS ORDERED: FLUTICASONE NASAL SPRAY 50 MCG/SPRY 120 SPRAY/16 GM NASL PRN (08:25)
[2017-02-13] MEDS ORDERED: HYDROMORPHONE HCL 2 MG TABLET PO PRN (08:25)
[2017-02-13] MEDS ORDERED: METOCLOPRAMIDE HCL 10 MG TABLET PO PRN (08:25)
[2017-02-13] MEDS ORDERED: HYDROMORPHONE HCL 12 MG PO SCH (10:00)
[2017-02-13] MEDS ORDERED: LISINOPRIL 10 MG TABLET PO SCH (10:00)
[2017-02-13] MEDS ORDERED: PREGABALIN 75 MG CAPSULE PO SCH (10:00)
[2017-02-13] MEDS ORDERED: ATENOLOL 50 MG TABLET PO SCH (10:00)
[2017-02-13] MEDS ORDERED: ASPIRIN 81 MG TABLET, CHEWABLE PO SCH (10:00)
--- NOTE | 2017-02-13 14:04 | PDOC PROGRESS REPORT ---
Subjective Progress Note for:: 02/13/17 Subjective:: Patient underwent and tolerated his procedure well he did not have any duodenal ulcer continues to have mild inflammation biopsies are negative for H.Pylori no significant events overnight will need to continue his PPI his Foss's has resolved labs are improving Physical Exam Vital Signs: Temp Pulse Resp BP Pulse Ox 97.5 F 65 18 179/96 H 100 02/13/17 11:09 02/13/17 11:09 02/13/17 11:09 02/13/17 11:09 02/13/17 11:09 Intake & Output 02/12/17 02/13/17 02/14/17 06:59 06:59 06:59 Intake Total 2475 600 Output Total 500 Balance 1975 600 Weight 84.4 kg 83.1 kg General appearance: PRESENT: no acute distress, cooperative Head exam: PRESENT: atraumatic, normocephalic Eye exam: PRESENT: EOMI, PERRLA. ABSENT: conjunctival injection, nystagmus, periorbital swelling, scleral icterus Throat exam: ABSENT: tonsillar exudate, tonsillogmegaly Neck exam: ABSENT: meningismus, tenderness, thyromegaly Respiratory exam: PRESENT: clear to auscultation arabella, symmetrical, unlabored Cardiovascular exam: PRESENT: RRR, +S1, +S2. ABSENT: rubs Pulses: PRESENT: normal carotid pulses GI/Abdominal exam: PRESENT: normal bowel sounds, soft. ABSENT: rebound, rigid, tenderness Musculoskeletal exam: PRESENT: full ROM Neurological exam: PRESENT: alert, awake, oriented to time, oriented to situation, reflexes normal Psychiatric exam: PRESENT: appropriate affect Skin exam: PRESENT: normal color. ABSENT: mottled, pallor, petechiae, urticaria , vesicles Results Laboratory Results: 02/13/17 05:05 02/13/17 05:05 02/13/17 02/13/17 05:05 05:05 WBC 5.1 RBC 3.52 L Hgb 11.0 L Hct 32.5 L MCV 93 MCH 31.2 MCHC 33.7 RDW 14.6 H Plt Count 63 L Seg Neutrophils % 65.1 Lymphocytes % 18.4 Monocytes % 11.4 Eosinophils % 4.7 Basophils % 0.4 Absolute Neutrophils 3.3 Absolute Lymphocytes 0.9 Absolute Monocytes 0.6 Absolute Eosinophils 0.2 Absolute Basophils 0.0 Sodium 141.1 Potassium 3.9 Chloride 107 Carbon Dioxide 24 Anion Gap 10 BUN 11 Creatinine 0.75 Est GFR ( Amer) > 60 Est GFR (Non-Af Amer) > 60 Glucose 148 H Calcium 8.5 Total Bilirubin 0.9 AST 18 ALT 30 Alkaline Phosphatase 86 Total Protein 6.2 L Albumin 3.4 L Lipase 214.7 Impressions: Abdomen MRI 02/11/17 00:00 IMPRESSION: 1. INFLAMMATORY CHANGES WITH EDEMA INVOLVING THE PANCREATIC HEAD CONSISTENT WITH PANCREATITIS. 2. UNREMARKABLE MRCP. NO BILIARY DILATION OR FILLING DEFECTS. Chest X-Ray 02/11/17 06:12 IMPRESSION: NO ACUTE RADIOGRAPHIC FINDING IN THE CHEST. Abdomen/Pelvis CT 02/11/17 07:48 IMPRESSION: Retroperitoneal inflammation surrounding the gastric outlet, proximal duodenum and pancreatic head. Findings are most likely related the pancreatitis. Inflammation related to duodenum ulcer could not be excluded. Cirrhosis with portal hypertension and varices. No ascites. Assessment & Plan - Diagnosis (1) Abnormal abdominal CT scan Plan: By endoscopy the duodenal area is normal. Should disregard dictation on CT scan (2) Gastroesophageal reflux disease Is this a current diagnosis for this admission?: YesPlan: Continue PPI for now, no further Foss's esophagus (3) Pancreatitis Is this a current diagnosis for this admission?: YesPlan: Improved ,diet can be advance as tolerated
--- NOTE | 2017-02-13 14:56 | PDOC DISCHARGE SUMMARY ---
General - Admit/Disc Date/PCP Admission Date/Primary Care Provider: 02/11/17 11:21 RASHAWN COELLO MD Discharge Date: 02/13/17 - Discharge Diagnosis (1) Pancreatitis Is this a current diagnosis for this admission?: YesSummary: Most likely secondary to alcohol use (2) Diabetes mellitus Is this a current diagnosis for this admission?: Yes (3) Hypothyroidism Is this a current diagnosis for this admission?: Yes (4) Coronary artery disease Is this a current diagnosis for this admission?: Yes (5) Hyperlipidemia Is this a current diagnosis for this admission?: Yes (6) Hypertension Is this a current diagnosis for this admission?: Yes (7) Gastroesophageal reflux disease Is this a current diagnosis for this admission?: Yes (8) Chronic lymphocytic leukemia Is this a current diagnosis for this admission?: Yes - Additional Information Resuscitation Status: Full Code Discharge Diet: Diabetic Discharge Activity: Activity As Tolerated Home Medications: Aspirin [Aspirin 81 mg Chewable Tablet] 81 mg PO DAILY 02/11/17 Atenolol [Tenormin 50 mg Tablet] 50 mg PO DAILY 02/11/17 Cetirizine HCl [Zyrtec 10 mg Tablet] 1 tab PO DAILYP PRN 02/11/17 Esomeprazole Magnesium [Nexium] 40 mg PO BID 02/11/17 Fluticasone Propionate [Flonase Nasal [place] 50 Mcg/[place] 16 gm] 2 sprays NASL DAILYP PRN 02/11/17 Hydromorphone HCl [Dilaudid 2 mg Tablet] 2 mg PO QIDP PRN 02/11/17 Hydromorphone HCl [Exalgo] 12 mg PO BID 02/11/17 Lisinopril [Prinivil 10 mg Tablet] 10 mg PO DAILY 02/11/17 Metformin HCl [Glucophage] 500 mg PO BIDBS 02/11/17 Metoclopramide HCl [Reglan 10 mg Tablet] 5 mg PO QIDP PRN 02/11/17 Pregabalin [Lyrica 75 mg Capsule] 150 mg PO BID 02/11/17 Ranitidine HCl [Zantac 150 mg Tablet] 150 mg PO QHS 02/11/17 History of Present Illness History of Present Illness: JESSICA DIAZ is a 61 year old male with a history of tonic lymphocytic leukemia who presents with a one-day history of abdominal pain. Patient reports his pain is epigastric area for the last day that radiates through occasionally to his back. It's made worse with eating. He reports that is 6 out of 10 currently. Patient has had some associated diarrhea. He denies any melena or bright blood per rectum. Patient is found to have inflammation around the pancreas as well as elevated lipase. The patient does occasionally have alcohol in the form of liquor 2 shots per day but none for the last several days. The patient was found to have cirrhosis on his CT scan although he has no history of cirrhosis. 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 The patient has a history of Foss's esophagitis and has been taking some nonsteroidals recently. He has had a cholecystectomy. Hospital Course Hospital Course: 61-year-old gentleman who presented with abdominal pain is found to have pancreatitis. Patient also was found to have cirrhosis on CT scan. Patient does drink occasionally. He was admitted and made nothing by mouth given IV fluids and IV narcotics. His pain has since resolved. Patient was evaluated by Neurology and they performed an EGD was found to have gastritis but no active bleeding. Patient was advanced to a regular diet and was able tightness without difficulty and is discharged home on his usual chronic pain medications that he takes. Physical Exam Vital Signs: Temp Pulse Resp BP Pulse Ox 97.5 F 65 18 179/96 H 100 02/13/17 11:09 02/13/17 11:09 02/13/17 11:09 02/13/17 11:09 02/13/17 11:09 Intake & Output 02/12/17 02/13/17 02/14/17 06:59 06:59 06:59 Intake Total 2475 600 890 Output Total 500 Balance 1975 600 890 Weight 84.4 kg 83.1 kg General appearance: PRESENT: no acute distress Eye exam: PRESENT: conjunctiva pink. ABSENT: scleral icterus Mouth exam: PRESENT: moist, tongue midline Neck exam: ABSENT: JVD Respiratory exam: PRESENT: clear to auscultation arabella. ABSENT: rales, rhonchi, wheezes Cardiovascular exam: PRESENT: RRR. ABSENT: diastolic murmur, rubs, systolic murmur GI/Abdominal exam: PRESENT: normal bowel sounds, soft. ABSENT: distended, guarding, mass, organolmegaly, rebound, tenderness Extremities exam: ABSENT: calf tenderness, clubbing, pedal edema Neurological exam: PRESENT: alert, awake, oriented to person, oriented to place , oriented to time, oriented to situation, CN II-XII grossly intact. ABSENT: motor sensory deficit Psychiatric exam: PRESENT: appropriate affect Skin exam: PRESENT: dry, intact, warm. ABSENT: cyanosis, rash Results Laboratory Results: 02/13/17 05:05 02/13/17 05:05 02/13/17 02/13/17 05:05 05:05 WBC 5.1 RBC 3.52 L Hgb 11.0 L Hct 32.5 L MCV 93 MCH 31.2 MCHC 33.7 RDW 14.6 H Plt Count 63 L Seg Neutrophils % 65.1 Lymphocytes % 18.4 Monocytes % 11.4 Eosinophils % 4.7 Basophils % 0.4 Absolute Neutrophils 3.3 Absolute Lymphocytes 0.9 Absolute Monocytes 0.6 Absolute Eosinophils 0.2 Absolute Basophils 0.0 Sodium 141.1 Potassium 3.9 Chloride 107 Carbon Dioxide 24 Anion Gap 10 BUN 11 Creatinine 0.75 Est GFR ( Amer) > 60 Est GFR (Non-Af Amer) > 60 Glucose 148 H Calcium 8.5 Total Bilirubin 0.9 AST 18 ALT 30 Alkaline Phosphatase 86 Total Protein 6.2 L Albumin 3.4 L Lipase 214.7 Impressions: Abdomen MRI 02/11/17 00:00 IMPRESSION: 1. INFLAMMATORY CHANGES WITH EDEMA INVOLVING THE PANCREATIC HEAD CONSISTENT WITH PANCREATITIS. 2. UNREMARKABLE MRCP. NO BILIARY DILATION OR FILLING DEFECTS. Chest X-Ray 02/11/17 06:12 IMPRESSION: NO ACUTE RADIOGRAPHIC FINDING IN THE CHEST. Abdomen/Pelvis CT 02/11/17 07:48 IMPRESSION: Retroperitoneal inflammation surrounding the gastric outlet, proximal duodenum and pancreatic head. Findings are most likely related the pancreatitis. Inflammation related to duodenum ulcer could not be excluded. Cirrhosis with portal hypertension and varices. No ascites. Qualifiers PATEINT BEING DISCHARGED WITH ANY OF THE FOLLOWING DIAGNOSIS?: No Plan Discharge Plan: Patient is discharged home in stable condition. Will follow up with primary care doctor in 2 weeks. Time Spent: Greater than 30 Minutes
[2017-02-13 15:39] VITALS: BP 145/69
[2017-02-13] MEDS ORDERED: FAMOTIDINE 20 MG TABLET PO SCH (22:00)
[2017-02-13] MEDS ORDERED: (PENDING PHARMACY ID) (Ranitidine Hcl [Zantac 150 Mg Tablet] 150 MG) PO SCH (22:00)
== END 2017-02-13 14:30 | disposition home or self-care (01) | DRG 439 ==
LOC: ER 05:15 → UNDOADMIN 10:55 → EH 10:55 → 4S 13:23
PROVIDERS: ADMIT Internal Medicine; ATTEND Internal Medicine
PROC: 0DB68ZX Excision of Stomach, Via Natural or Artificial Opening Endoscopic, Diagnostic (ICD-10-PCS; principal; 2017-02-12 10:00)
DX: K85.90 Acute pancreatitis without necrosis or infection, unspecified (principal); C91.10 Chronic lymphocytic leukemia of B-cell type not having achieved remission; K74.60 Unspecified cirrhosis of liver; I25.10 Atherosclerotic heart disease of native coronary artery without angina pectoris; I10 Essential (primary) hypertension; E03.9 Hypothyroidism, unspecified; E11.9 Type 2 diabetes mellitus without complications; K21.9 Gastro-esophageal reflux disease without esophagitis; E78.5 Hyperlipidemia, unspecified; D69.6 Thrombocytopenia, unspecified; I25.2 Old myocardial infarction; Z95.5 Presence of coronary angioplasty implant and graft
CPT/HCPCS: 36415; 43239; 71010; 74177; 74181; 80048; 80053; 81001; 82550; 82553; 82962; 83690; 83735; 84484; 85025; 88305; 93005; 93010; 96361; 96374; 96375; 99285; J0171; J1200; J1610; J2250; J2270; J2310; J2405; J2550; J3010; J3475; J3490; J7030; S0119

== ENCOUNTER 2017-02-16 06:53 | Emergency (ER) | payer BC, MEDICARE ==
[2017-02-16] MEDS ORDERED: NORMAL SALINE 1000 ML 1,000 ML IV ONE (08:24)
--- NOTE | 2017-02-16 08:27 | ER Document Report ---
ED GI/ - General Chief Complaint: Abdominal Pain Stated Complaint: ABDOMINAL/BACK PAIN Time seen by provider: 08:22 Mode of Arrival: Ambulatory Information source: Patient Notes: 61-year-old male presents to ED for right sided abdominal pain radiates around to the back between the shoulder blades. States he does not have a gallbladder. States he was recently admitted for pancreatitis. Also has nausea but no vomiting. Also has low back pain which is chronic. States he also has a nonproductive cough and tightness in his chest with a dry hacking cough. TRAVEL OUTSIDE OF THE [place] IN LAST 30 DAYS: No - HPI Patient complains to provider of: Abdominal pain, Other - Cough chest tightness nausea Timing/Duration: Intermittent Quality of pain: Sharp - Sharp to the abdomen and back, Other - Chest tightness Severity at maximum: Severe Severity in ED: Severe Pain Level: 5 Location: Epigastric, Right flank, Low back, Other - Test Associated symptoms: Nausea, Radiates to back Exacerbated by: Movement, Coughing, Food Relieved by: Denies Similar symptoms previously: Yes Recently seen / treated by doctor: Yes - Related Data Allergies/Adverse Reactions: levofloxacin [From Levaquin] Allergy (Verified 02/16/17 07:02) Past Medical History - General Information source: Patient - Social History Smoking Status: Never Smoker Cigarette use (# per day): No Chew tobacco use (# tins/day): No Smoking Education Provided: No Frequency of alcohol use: None Drug Abuse: None Lives with: Family Family History: Reviewed & Not Pertinent Patient has suicidal ideation: No Patient has homicidal ideation: No - Past Medical History Cardiac Medical History: Reports: Hx Coronary Artery Disease - cardiac stent placement, Hx Heart Attack - 2004, Hx Hypertension Pulmonary Medical History: Reports: Hx Pneumonia - hx of sepsis, E-coli EENT Medical History: Reports: None Neurological Medical History: Reports: None Endocrine Medical History: Reports: Hx Diabetes Mellitus Type 2, Hx Hypothyroidism Renal/ Medical History: Reports: Other - Adrenal insufficiency Malignancy Medical History: Reports Hx Leukemia - CLL GI Medical History: Reports: Hx Gastroesophageal Reflux Disease Musculoskeltal Medical History: Reports Hx Arthritis, Reports Hx Musculoskeletal Deformity - Chronic back pain Skin Medical History: Reports None Psychiatric Medical History: Reports: None Traumatic Medical History: Reports: None Infectious Medical History: Reports: None Past Surgical History: Reports: Hx Cardiac Catheterization, Hx Cholecystectomy, Hx Coronary Stent, Hx Inguinal Hernia, Hx Oral Surgery - [facility] teeth, Hx Orthopedic Surgery - Orthoscopic right knee - Immunizations Immunizations up to date: Yes Hx Diphtheria, Pertussis, Tetanus Vaccination: Yes Hx Pneumococcal Vaccination: 08/31/10 Review of Systems - Review of Systems Constitutional: Recent illness EENT: No symptoms reported Cardiovascular: Other - Chest tightness Respiratory: Cough Gastrointestinal: Abdominal pain, Nausea Genitourinary: No symptoms reported Male Genitourinary: No symptoms reported Musculoskeletal: Back pain Skin: No symptoms reported Hematologic/Lymphatic: No symptoms reported Neurological/Psychological: No symptoms reported -: Yes All other systems reviewed and negative Physical Exam - Vital signs Vitals: Temp Pulse Resp BP Pulse Ox 98.2 F 71 20 165/88 H 99 02/16/17 06:55 02/16/17 06:55 02/16/17 06:55 02/16/17 06:55 02/16/17 06:55 Interpretation: Normal - General General appearance: Appears well, Alert - HEENT Head: Normocephalic, Atraumatic Eyes: Normal Pupils: PERRL - Respiratory Respiratory status: No respiratory distress Chest status: Nontender Breath sounds: Normal Chest palpation: Normal - Cardiovascular Rhythm: Regular Heart sounds: Normal auscultation Murmur: No - Abdominal Inspection: Normal Distension: No distension Bowel sounds: Normal Tenderness: Tender - Right upper and epigastric tenderness. No: McBurney's point, Kauffman's sign, Guarding, Rebound Organomegaly: No organomegaly - Back Back: Normal, Tender. No: Deformity/step-off, CVA tenderness - Right lower back and in between scapula to the right, Vertebra tenderness, Scars, Scoliosis , Wounds - Extremities General upper extremity: Normal inspection, Nontender, Normal color, Normal ROM , Normal temperature General lower extremity: Normal inspection, Nontender, Normal color, Normal ROM , Normal temperature, Normal weight bearing. No: Maximiliano's sign - Neurological Neuro grossly intact: Yes Cognition: Normal Orientation: AAOx4 [place] Coma Scale Eye Opening: Spontaneous [place] Coma Scale Verbal: Oriented Andi Coma Scale Motor: Obeys Commands [place] Coma Scale Total: 15 Speech: Normal Motor strength normal: LUE, RUE, LLE, RLE Sensory: Normal - Psychological Associated symptoms: Normal affect, Normal mood - Skin Skin Temperature: Warm Skin Moisture: Dry Skin Color: Normal Course - Re-evaluation Re-evalutation: 02/16/17 20:[address] Cavazos on this patient discharge patient home to continue his home medications. He was able to keep down food and fluids. He stated he has had a [employer] cheeseburger and fries yesterday reviewed diet for pancreatitis fats and proteins are to be limited to the patient is pain-free. He was recently seen and admitted and discharged for the pancreatitis when his lipase had become normal. He states that no one ever gave him in the dietary instructions concerning his pancreatitis. - Vital Signs Vital signs: Temp Pulse Resp BP Pulse Ox 98.5 F 58 L 16 158/79 H 97 02/16/17 10:50 02/16/17 10:50 02/16/17 10:50 02/16/17 10:50 02/16/17 10:50 - Laboratory Result Diagrams: 02/16/17 08:13 02/16/17 08:13 Laboratory results interpreted by me: 02/16/17 02/16/17 02/16/17 08:13 08:13 08:13 RBC 3.82 L Hgb 12.0 L Hct 35.0 L RDW 14.5 H Plt Count 76 L Potassium 3.3 L Glucose 136 H Creatine Kinase 30 L Lipase 574.1 H Urine Urobilinogen 02/16/17 08:54 RBC Hgb Hct RDW Plt Count Potassium Glucose Creatine Kinase Lipase Urine Urobilinogen 2.0 H Discharge - Discharge Clinical Impression: Pancreatitis Qualifiers: Chronicity: acute Pancreatitis type: unspecified pancreatitis type Acute pancreatitis complication: unspecified Qualified Code(s): K85.90 - Acute pancreatitis without necrosis or infection, unspecified Condition: Stable Disposition: HOME, SELF-CARE Additional Instructions: Pancreatitis Pancreatitis is an inflammation of the pancreas, an organ at the back of your abdomen. The pancreas produces insulin and enzymes that digest your food. Pancreatitis can be caused by gallstones in the bile duct, by alcohol or viruses, or by excess fat or calcium in the blood stream. Occasionally, pancreatitis occurs when a stomach ulcer diehl through into the pancreas. We try to find the cause of pancreatitis, but some tests can't be done until the pancreas heals. The usual symptoms of pancreatitis are pain in the pit of the stomach that goes straight through to the back, vomiting, and low-grade fever. Severe cases require hospital admission, but many patients with mild pancreatitis do well at home. You will probably need medicine for pain and for vomiting. Sometimes we prescribe medicine to decrease stomach acid secretion and to decrease flow of pancreatic juices. Start with a diet of clear liquids (soda pop, juices). When the pain is decreasing, you can add some simple starches (potato, toast, applesauce). Avoid proteins and fats until you are completely painfree. When you're better, your doctor may suggest treatment to prevent future pancreatitis (such as gallbladder removal). Avoid alcohol forever. Get immediate treatment for any future episodes. Contact your doctor at once or return here if you have increasing pain, shortness of breath, general swelling, increasing size of the abdomen, continued vomiting, muscle spasms, or other new symptoms. PAIN MEDICATION INJECTION: You have received an injection of a pain medication. You should experience significant pain relief within 45 minutes. This drug is a narcotic - - it will impair your judgement, slow your reaction time and make you sleepy ( as well as relieve your pain). Narcotics also can cause nausea. You should not drive, work with machinery, or perform any task requiring mental alertness until all effects of the medication are gone -- six to eight hours. Do not take any alcohol, or sedatives, and do not take any other medication without checking with your physician. [place] MEDICATION: You have been given a medication to suppress nausea and vomiting. This type of medication can be given as a shot, pill, or suppository. It will usually last for many hours. Pills and shots usually last six to eight hours, suppositories last about 12 hours. For the typical illness, only one or two doses of the medication may be necessary. Mild lightheadedness may occur. This type of medicine can cause drowsiness. Do not drive or operate dangerous machinery while under its influence. Do not mix with alcohol. See your doctor at once if you have muscle spasms or tightness, or uncontrollable motions (particularly of the neck, mouth, or jaw). Persistent vomiting or severe lightheadedness should also be evaluated by the physician. Intravenous (IV) Fluids As part of your care today, you received intravenous (IV) fluids. IV fluids are administered to patients who are dehydrated or to those who have certain chemical (electrolyte) abnormalities that need correcting. Continue with your pain medicine that you have at home and follow-up with your doctor as you have scheduled. Call your doctor on Friday to make sure that he does not want to see you sooner. FOLLOW-UP CARE: If you have been referred to a physician for follow-up care, call the physician s office for an appointment as you were instructed or within the next two days. If you experience worsening or a significant change in your symptoms, notify the physician immediately or return to the Emergency Department at any time for re-evaluation. Please complete the patient's satisfaction survey if you get one and return. If you do not receive a survey you can go to [facility] website [email or web address] and placed her comments about your very good care. Thank you very much. It was a pleasure be in your medical provider today. Prescriptions: Ondansetron [Zofran Odt 4 mg Tablet] 1 tab PO Q6H #15 tab.rapdis Forms: Elevated Blood Pressure Referrals: RASHAWN COELLO MD [Primary Care Provider] - Follow up as needed
[2017-02-16 08:59] LABS: ABSOLUTE BASOPHILS # (AUTO) 0.1 10^3/uL (0.0-0.2); ABSOLUTE EOSINOPHILS # (AUTO) 0.2 10^3/uL (0.0-0.6); ABSOLUTE LYMPHOCYTES (AUTO) 1.3 10^3/uL (0.5-4.7); ABSOLUTE MONOCYTES (AUTO) 0.9 10^3/uL (0.1-1.4); ABSOLUTE NEUT (AUTO) 5.1 10^3/uL (1.7-8.2); BASOPHILS % (AUTO) 1.4 % (0-2); LYMPHOCYTES % (AUTO) 17.4 % (13-45); MEAN CORPUSCULAR HEMOGLOBIN 31.4 pg (27.0-33.4); MEAN CORPUSCULAR HGB CONC 34.3 g/dL (32.0-36.0); MEAN CORPUSCULAR VOLUME 92 fl (80-97); RED BLOOD COUNT 3.82 10^6/uL (4.35-5.55); RED CELL DISTRIBUTION WIDTH 14.5 % (11.5-14.0); SEGMENTED NEUTROPHILS % (AUTO) 66.2 % (42-78); WHITE BLOOD COUNT 7.7 10^3/uL (4.0-10.5)
[2017-02-16 09:07] LABS: CREATINE KINASE MB 0.35 ng/mL (<4.55); TROPONIN I 0.022 ng/mL
[2017-02-16 09:19] LABS: APPEARANCE,URINE CLEAR; BILIRUBIN,URINE NEGATIVE (NEGATIVE); GLUCOSE, URINE NEGATIVE (NEGATIVE); KETONES,URINE NEGATIVE (NEGATIVE); LEUKOCYTE ESTERASE,URINE NEGATIVE (NEGATIVE); NITRITE,URINE NEGATIVE (NEGATIVE); PROTEIN,URINE NEGATIVE (NEGATIVE); URINE SPECIFIC GRAVITY 1.008
[2017-02-16 09:22] LABS: ALANINE AMINOTRANSFERASE 24 U/L (21-72); ALBUMIN 3.9 g/dL (3.5-5.0); ALKALINE PHOSPHATASE 92 U/L (38-126); ANION GAP 10 (5-19); ASPARTATE AMINO TRANSFERASE 17 U/L (17-59); BILIRUBIN,TOTAL 0.9 mg/dL (0.2-1.3); BLOOD UREA NITROGEN 10 mg/dL (7-20); CALCIUM 9.3 mg/dL (8.4-10.2); CARBON DIOXIDE 29 mmol/L (22-30); CHLORIDE 104 mmol/L (98-107); CREATINE KINASE 30 U/L (55-170); CREATININE RESULT 0.82 mg/dL (0.52-1.25); GLUCOSE 136 mg/dL (75-110); POTASSIUM 3.3 mmol/L (3.6-5.0); SODIUM 143.3 mmol/L (137-145); TOTAL PROTEIN 6.9 g/dL (6.3-8.2)
[2017-02-16] MEDS ORDERED: ONDANSETRON HCL INJ/PF 4 MG/2 ML SDV IV ONE (10:26)
[2017-02-16] MEDS ORDERED: HYDROMORPHONE HCL INJ/PF 2 MG/ML AMPULE IV ONE (10:26)
[2017-02-16 10:57] VITALS: BP 158/79
--- NOTE | 2017-02-16 12:12 | EKG REPORT ---
SEVERITY:- ABNORMAL ECG - ACCELERATED JUNCTIONAL ESCAPE RHYTHM BORDERLINE R WAVE PROGRESSION, ANTERIOR LEADS ABNORMAL T, CONSIDER ISCHEMIA, ANTERIOR LEADS : Confirmed by: Snow Singletary MD 16-Feb-2017 12:11:45
== END 2017-02-16 10:55 | disposition home or self-care (01) ==
LOC: ER 06:53
DX: K85.90 Acute pancreatitis without necrosis or infection, unspecified (principal); R07.89 Other chest pain; R05 Cough; M54.5 Low back pain; G89.29 Other chronic pain; I25.10 Atherosclerotic heart disease of native coronary artery without angina pectoris; I25.2 Old myocardial infarction; I10 Essential (primary) hypertension; E11.9 Type 2 diabetes mellitus without complications; Z98.61 Coronary angioplasty status; Z87.01 Personal history of pneumonia (recurrent); Z90.49 Acquired absence of other specified parts of digestive tract; Z88.1 Allergy status to other antibiotic agents; Z85.6 Personal history of leukemia
CPT/HCPCS: 93005; 99284; 96374; 96375; 36415; 82553; 82550; 83690; 85025; 80053; 81001; 84484; 71020; 93010; J1170; J2405; J7030